=== PATIENT | female | born 2000 | race Caucasian/White ===

== ENCOUNTER 2020-08-24 18:30 | Emergency (ER) | payer MEDICARE ==
[~2020-08-24] VITALS: Ht 162.6 cm; Wt 99.8 kg
--- NOTE | 2020-08-24 18:41 | Emergency Department Note ---
History of Present Illnes History of Present Illness Chief Complaint: COVID PUI History of Present Illness This is a 19 year old female with week long history of cough and body aches .Denies fevers, sorethroat or loss of sense of taste or smell . recently seen by OSH with Neg COVID-19 test Historian: Patient, Family Member Arrival Mode: Car Onset (how long ago): week(s) (1) Radiation: Reports non-radiation Severity: mild Onset quality: gradual Duration (how long): week(s) (1) Timing of current episode: constant Progression: unchanged Chronicity: new Context: Denies recent illness, Denies recent surgery, Denies recent immobilization, Denies recent travel, Denies trauma/injury, Denies new medications, Denies hx of DVT/PE, Denies non-compliance w/ medications, Denies other Relieving factors: none Exacerbating factors: none Associated symptoms: Reports cough; Denies fever/chills Treatments prior to arrival: none Previous service: tests performed Past Medical/Family History Physician Review I have reviewed the patient's past medical and family history. Any updates have been documented here. Past Medical History Recent Fever: Yes Clinical Suspicion of Infectio: Yes New/Unexplained Change in Ment: No Past Medical History: None Past Surgical History: None Social History Smoking Cessation: Never Smoker Alcohol Use: None Any Illegal Drug Use: No Review of Systems Review of Systems Constitutional: Reports no symptoms EENTM: Reports no symptoms Cardiovascular: Reports no symptoms Respiratory: Reports cough Gastrointestinal: Reports no symptoms Genitourinary: Reports no symptoms Musculoskeletal: Reports no symptoms Integumentary: Reports no symptoms Neurological: Reports no symptoms Psychological: Reports no symptoms Endocrine: Reports no symptoms Hematological/Lymphatic: Reports no symptoms Physical Exam Related Data Allergies: Coded Allergies: No Known Allergies (Unverified , 08/24/20) Vital signs reviewed: Yes Physical Exam CONSTITUTIONAL Constitutional: Present well-developed, Present well-nourished, Present morbidly obese HENT HENT: Present normocephalic, Present atraumatic, Present oropharynx clear/moist, Present nose normal HENT L/R: Present left ext ear normal, Present right ext ear normal EYES Eyes: Reports PERRL, Reports conjunctivae normal NECK Neck: Present ROM normal PULMONARY Pulmonary: Present effort normal, Present breath sounds normal CARDIOVASCULAR Cardiovascular: Present regular rhythm, Present heart sounds normal, Present capillary refill normal, Present normal rate GASTROINTESTINAL Abdominal: Present soft, Present nontender, Present bowel sounds normal GENITOURINARY Genitourinary: Present exam deferred SKIN Skin: Present warm, Present dry MUSCULOSKELETAL Musculoskeletal: Present ROM normal NEUROLOGICAL Neurological: Present alert, Present oriented x 3, Present no gross motor or sensory deficits PSYCHOLOGICAL Psychological: Present mood/affect normal, Present judgement normal Results Imaging Imaging results reviewed: Yes Impressions [place] [id number] Patient Name: BEKA GRIFFIN MR #: [id number] : 2000 Age/Sex: 19/F Req #: [id number] Adm Physician: Ordered by: MIMA SMITH DO Report #: [id number] Location: ER Room/Bed: Procedure: [id number] DX/CHEST 2 VIEWS Exam Date: 08/24/20 Exam Time: 1854 REPORT STATUS: Signed EXAMINATION: CHEST 2 VIEWS INDICATION: Cough. ^[id number] ^1855 COMPARISON: None FINDINGS: TUBES and LINES: None. LUNGS: Normal lung volumes. Lungs are clear. No consolidations. There is bibasilar atelectasis. PLEURA: No pleural effusion or pneumothorax. HEART AND MEDIASTINUM: The cardiomediastinal silhouette is unremarkable. BONES AND SOFT TISSUES: No acute osseous lesion. Soft tissues are unremarkable. UPPER ABDOMEN: No free air under the diaphragm. IMPRESSION: No acute thoracic radiographic abnormality. Signed by: Radha Laura MD on 08/24/2020 7:11 PM Dictated By: RADHA LAURA MD 10 Transcribed By: PATRICIA on 08/24/201910 COPY TO: MIMA SMITH DO~ Procedures 12 Lead ECG Interpretation ECG Interpretation : ECG: ECG 1 [employer]: Interpreted by ED physician Date: Aug 24, 2020 Time: 18:44 Prior ECG tracings: reviewed Rhythm: sinus rhythm Rate: normal BPM: 85 QRS axis: normal ST segments normal: Yes T waves normal: Yes Clinical Impression: normal ECG Assessment & Plan Medical Decision Making MDM Diff Dx : COVID-19 URI , PNA Assessment & Plan Final Impression: (1) Bronchitis Depart Disposition: HOME, SELF-CARE MIMA SMITH DO Aug 24, 2020 18:41
--- OUTSIDE RECORDS SUMMARY | 2020-08-24 18:50 | XMS REPORT | Continuity of Care Document ---
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 romeo [facility] ESTIMATED GFR 2019-10-15 17:32:00 Jean Marie Kathleen [facility] URINE CULTURE 2019-10-15 16:08:00 Jean Marie Kathleen [facility] GRAM STAIN 2019-10-15 16:08:00 Jean Marie Kathleen [facility] URINALYSIS SCREEN AND MICROSCOPY, WITH REFLEX TO CULTURE 202 15:56:00 Jean Marie Kathleen HCG QUALITATIVE, URINE SCREEN 2019-10-15 15:56:00 FrannieJean Marie romeo GFR CALCULATION 2019-10-15 15:54:11 Jean Marie Kathleen [facility] Diagnostic evaluation (no medical) - [id number] 2018-06-22 15:04:26 Brittanie Cohen [facility] Ear Irrigation 2016-04-01 15:31:00 Citlaly Vo [facility] Urinalysis - Dip only - In House 2014-11-20 17:52:13 DemetrioShwetha is [facility] Plan of Care Planned Activity Planned Date Details Comments Source Future Scheduled Test 2020-05-04 00:00:00 INFLUENZA VACCINE [code = INFLUENZA VACCINE] [place] [facility] Future Scheduled Test 2016 00:00:00 CHLAMYDIA SCREENIN G [code = CHLAMYDIA SCREENING] [place] [facility] Encounters Start Date/Time End Date/Time En[facility] Encounter ID Source 2020-08-12 00:00:00 2020-08-13 00:00:00 Emergency KATARINA LEVY [place] [id number] [place] [facility] 2020-08-10 00:00:00 2020-08-10 00:00:00 Emergency JONATHAN TODD [facility] [id number] [place] [facility] 2020-04-21 00:00:00 2020-04-22 00:00:00 Emergency GRETA LEIWS [place] [address] [id number] [place] [facility] 2020-04-18 00:00:00 2020-04-19 00:00:00 Emergency LEONA RITTER [place] [address] [id number] [place] [facility] 2020-01-28 00:00:00 2020-01-28 00:00:00 Emergency JUAN ISBELL [place] [address] [id number] [place] [facility] 2020-01-27 00:00:00 2020-01-27 00:00:00 Emergency ARNULFO LOYD [place] [address] [id number] [place] [facility] 2019-11-20 00:00:00 2019-11-20 00:00:00 Office Visit Panda Scruggs [facility] Encounter/[id number] [facility] 2019-11-20 00:00:00 2019-11-20 00:00:00 Office Visit Panda Scruggs [facility] Encounter/[id number] [facility] 2019-11-20 00:00:00 2019-11-20 00:00:00 Office Visit Panda Scruggs [facility] Encounter/[id number] [facility] 2019-11-20 00:00:00 2019-11-20 00:00:00 Office Visit Panda Scruggs [facility] Encounter/[id number] [facility] 2019-11-20 00:00:00 2019-11-20 00:00:00 Office Visit Panda Hill Sonya [facility] Encounter/[id number] [facility] 2019-10-19 00:00:00 2019-10-19 00:00:00 Office Visit Liudmila Shaikh [facility] Encounter/[id number] [facility] 2019-10-19 00:00:00 2019-10-19 00:00:00 Office Visit Panda Scruggs [facility] Encounter/[id number] [facility] 2019-10-19 00:00:00 2019-10-19 00:00:00 Office Visit Panda Scruggs [facility] Encounter/[id number] [facility] 2019-10-19 00:00:00 2019-10-19 00:00:00 Office Visit Panda Hill Sonya [facility] Encounter/[id number] [facility] 2019-10-18 00:00:00 2019-10-18 00:00:00 Emergency ARNULFO LOYD [facility] [id number] [facility] 2019-10-18 00:00:00 2019-10-18 00:00:00 Office Visit Panda Scruggs [facility] Encounter/[id number] [facility] 2019-10-15 00:00:00 2019-10-15 00:00:00 Emergency ÁNGEL CEBALLOS [facility] [id number] [facility] 2019-09-18 00:00:00 2019-09-18 00:00:00 Emergency KATARINA LEVY [facility] [id number] [place] [facility] 2019-06-29 00:00:00 2019-06-29 00:00:00 Office Visit Jacinto Lopez [facility] Encounter/[id number] [facility] 2019-04-11 00:00:00 2019-04-11 00:00:00 Office Visit Brigid Duncan [facility] Encounter/[id number] [facility] 2018-08-02 00:00:00 2018-08-02 00:00:00 Office Visit Matilde Dowling [facility] Encounter/[id number] [facility] 2018-07-29 00:00:00 2018-07-29 00:00:00 [facility]/[id number] [facility] 2018-07-05 00:00:00 2018-07-05 00:00:00 [facility] [employer] [employer] Encounter/[id number] [facility] 2018-06-21 00:00:00 2018-06-21 00:00:00 Office Visit Brittanie Murguia [facility] Encounter/[id number] [facility] 2018-06-21 00:00:00 2018-06-21 00:00:00 Office Visit Anup Moreno [facility] Encounter/[id number] [facility] 2018-05-31 00:00:00 2018-05-31 00:00:00 Office Visit Mei Bowers [facility] Encounter/[id number] [facility] 2018-05-19 00:00:00 2018-05-19 00:00:00 Office Visit Jacinto Lopez [facility] Encounter/[id number] [facility] 2018-05-09 00:00:00 2018-05-09 00:00:00 Office Visit Mei Bowers [facility] Encounter/[id number] [facility] 2018-04-20 00:00:00 2018-04-20 00:00:00 Office Visit Jacinto Lopez [facility] Encounter/[id number] [facility] 2017-11-25 00:00:00 2017-11-25 00:00:00 Office Visit BowersMei patel [facility] Encounter/[id number] [facility] 2017-11-19 00:00:00 2017-11-19 00:00:00 Office Visit Jacinto Lopez [facility] Encounter/[id number] [facility] 2017-05-17 00:00:00 2017-05-17 00:00:00 [facility] En[facility]/[id number] [facility] 2017-04-28 00:00:00 2017-04-28 00:00:00 Office Visit Ines Encarnacion [facility] Encounter/[id number] [facility] 2017-04-22 00:00:00 2017-04-22 00:00:00 Office Visit Jacinto Lopez [facility] Encounter/[id number] [facility] 2017-04-22 00:00:00 2017-04-22 00:00:00 Office Visit Glory Knox Heidy Jahns, [facility] Encounter/[id number] [facility] 2016-06-17 00:00:00 2016-06-17 00:00:00 Office Visit Jacinto Lopez [facility] Encounter/[id number] [facility] 2016-06-17 00:00:00 2016-06-17 00:00:00 Office Visit Glory Knox Kizzy [facility] Encounter/[id number] [facility] 2016-05-20 00:00:00 2016-05-20 00:00:00 Office Visit Jacinto Lopez [facility] Encounter/[id number] [facility] 2016-05-20 00:00:00 2016-05-20 00:00:00 Office Visit Glory Knox Kiera Franklin, Peggy Alaniz, Heidy [facility] Encounter/[id number] [facility] 2016-04-20 00:00:00 2016-04-20 00:00:00 Office Visit Citlaly Vo [facility] Encounter/[id number] [facility] 2016-04-02 00:00:00 2016-04-02 00:00:00 Office Visit Status, Fax [facility] Encounter/[id number] [facility] 2016-04-02 00:00:00 2016-04-02 00:00:00 Office Visit Status, Fax [facility] Encounter/[id number] [facility] 2016-04-02 00:00:00 2016-04-02 00:00:00 Office Visit Status, Fax [facility] Encounter/[id number] [facility] 2016-04-01 00:00:00 2016-04-01 00:00:00 Office Visit Citlaly Vo [facility] Encounter/[id number] [facility] 2016-04-01 00:00:00 2016-04-01 00:00:00 Office Visit Citlaly Mack Kiera Gutierrez, Jessica [place], Peggy [facility] Encounter/[id number] [facility] 2015-05-20 00:00:00 2015-05-20 00:00:00 Office Visit Jacinto Schroeder [facility] Encounter/[id number] [facility] 2015-05-20 00:00:00 2015-05-20 00:00:00 Office Visit Jacinto Schroeder [facility] Encounter/[id number] [facility] 2015-04-11 00:00:00 2015-04-11 00:00:00 Office Visit Becki Reyes [facility] Encounter/[id number] [facility] 2015-04-11 00:00:00 2015-04-11 00:00:00 Office Visit Becki Reyes [facility] Encounter/[id number] [facility] 2015-04-11 00:00:00 2015-04-11 00:00:00 Office Visit Becki Reyes [facility] Encounter/[id number] [facility] 2015-04-11 00:00:00 2015-04-11 00:00:00 Office Visit Marjorie Albarran, Casandra Schroeder, Jamia Chinchilla [facility] Encounter/[id number] [facility] 2014-11-20 00:00:00 2014-11-20 00:00:00 Office Visit Matt Jain, Pauline Reyes [facility] Encounter/[id number] [facility] 2014-08-08 00:00:00 2014-08-08 00:00:00 Office Visit Alon Jay [facility] Encounter/[id number] [facility] 2014-08-08 00:00:00 2014-08-08 00:00:00 Office Visit Alon Jay [facility] Encounter/[id number] [facility] 2014-08-08 00:00:00 2014-08-08 00:00:00 Office Visit Alon Jay [facility] Encounter/[id number] [facility] 2014-08-08 00:00:00 2014-08-08 00:00:00 Office Visit Alon Jay [facility] Encounter/[id number] [facility] 2014-08-08 00:00:00 2014-08-08 00:00:00 Office Visit Alon Ya Guadalupe [facility] Encounter/[id number] [facility] 2014-07-20 00:00:00 2014-07-20 00:00:00 Office Visit Alon Jay [facility] Encounter/[id number] [facility] 2014-07-19 00:00:00 2014-07-19 00:00:00 Office Visit Alon Jay [facility] Encounter/[id number] [facility] 2014-07-19 00:00:00 2014-07-19 00:00:00 Office Visit Status, Fax [facility] Encounter/[id number] [facility] 2014-07-19 00:00:00 2014-07-19 00:00:00 Office Visit Status, [place] [facility] Encounter/[id number] [facility] 2014-07-18 00:00:00 2014-07-18 00:00:00 Office Visit Alon Jay [facility] Encounter/[id number] [facility] 2014-07-18 00:00:00 2014-07-18 00:00:00 Office Visit Alon Jay [facility] Encounter/[id number] [facility] 2014-07-18 00:00:00 2014-07-18 00:00:00 Office Visit Alon Jay [facility] Encounter/[id number] [facility] 2014-07-18 00:00:00 2014-07-18 00:00:00 Office Visit Alon Ya Jacqueline [facility] Encounter/[id number] [facility] 2014-07-09 00:00:00 2014-07-09 00:00:00 Office Visit Jacinto Schroeder [facility] Encounter/[id number] [facility] 2014-07-09 00:00:00 2014-07-09 00:00:00 Office Visit Jacinto Schroeder [facility] Encounter/[id number] [facility] 2014-05-09 00:00:00 2014-05-09 00:00:00 Office Visit Chiqui Peacock, Nay Garcia, Chris Schroeder, Chelsey [facility] Encounter/[id number] [facility] 2014-01-02 00:00:00 2014-01-02 00:00:00 [facility] En[facility]/[id number] [facility] 2014-01-02 00:00:00 2014-01-02 00:00:00 Office Visit [facility]ie [facility]barran [facility]/[id number] [facility] 2013-09-19 00:00:00 2013-09-19 00:00:00 Office Visit Becki Reyes [facility] Encounter/[id number] [facility] 2013-09-19 00:00:00 2013-09-19 00:00:00 Office Visit Candida [facility] Encounter/[id number] [facility] 2013-09-19 00:00:00 2013-09-19 00:00:00 Office Visit Marjorie Albarran [facility] Encounter/[id number] [facility] 2013-08-22 00:00:00 2013-08-22 00:00:00 [facility] Visit [facility] Encounter/[id number] [facility] 2013-08-22 00:00:00 2013-08-22 00:00:00 Office Visit Marjorie Albarran Cristina [facility] Encounter/[id number] [facility] 2013-08-17 00:00:00 2013-08-17 00:00:00 Office Visit Becki Reyes [facility] Encounter/[id number] [facility] 2013-03-06 00:00:00 2013-03-06 00:00:00 Office Visit Preload , [place] [facility] Encounter/[id number] [facility] 2013-03-06 00:00:00 2013-03-06 00:00:00 Office Visit Preload , [place] [facility] Encounter/[id number] [facility] 2013-03-06 00:00:00 2013-03-06 00:00:00 Office Visit Preload , [place] [facility] Encounter/[id number] [facility] 2013-03-06 00:00:00 2013-03-06 00:00:00 Office Visit Preload , [place] [facility] Encounter/[id number] [facility] 2011-11-09 00:00:00 2011-11-09 00:00:00 Office Visit Preload , [place] [facility] Encounter/[id number] [facility] 2011-11-09 00:00:00 2011-11-09 00:00:00 Office Visit Preload , [place] [facility] Encounter/[id number] [facility] 2011-11-09 00:00:00 2011-11-09 00:00:00 Office Visit Preload , [place] [facility] Encounter/[id number] [facility] 2011-11-09 00:00:00 2011-11-09 00:00:00 Office Visit Preload , [place] [facility] Encounter/[id number] [facility] 2011-11-09 00:00:00 2011-11-09 00:00:00 Office Visit Preload , [place] [facility] Encounter/[id number] [facility] 2010-08-21 00:00:00 2010-08-21 00:00:00 Office Visit Preload , [place] [facility] Encounter/[id number] [facility] Results Test Description Test Time Test Comments Results Result Comments Source ECG 12 lead 2020-08-13 15:09:18 Test Item Ventricular rate (test code = 253) 86 Atrial rate (test code = 255) 86 ND interval (test code = 266) 156 QRSD interval (test code = 260) 76 QT interval (test code = 264) 362 QTC interval (test code = 265) 433 P axis 1 (test code = 267) 44 QRS axis 1 (test code = 268) 59 T wave axis (test code = 270) 28 EKG impression (test code = 273) Normal sinus rhythm-N ormal ECG-In automated comparison with ECG of 29-JUN-2019 05:13,-No significant change was found- [place] MethodistRespiratory pathogen [id number] 11:15:05* Test Item Value Reference Range Interpretation Comments Adenovirus PCR (test code = 7092) Not Detected Specimen InformationSpecimen Source: NasopharyngealSpecimen Site: Swab Coronavirus HKU1 PCR (test code = 7093) Not Detected Coronavirus NL63 PCR (test code = 7094) Not Detected Coronavirus 229E PCR (test code = 7095) Not Detected Coronavirus OC43 PCR (test code = 7096) Not Detected Human metapneumovirus PCR (test code = 7097) Not Detected Human rhinovirus/enterovirus PCR (test code = 7098) Detected A Influenza A PCR (test code = 7099) Not Detected Influenza A/H1 PCR (test code = 7100) Not Reported Influenza A/H3 PCR (test code = 7102) Not Reported Influenza A/H1-2009 PCR (test code = 7101) Not Reported Influenza B PCR (test code = 7104) Not Detected Parainfluenza virus 1 PCR (test code = 7105) Not Detected Parainfluenza virus 2 PCR (test code = 7106) Not Detected Parainfluenza virus 3 PCR (test code = 7107) Not Detected Parainfluenza virus 4 PCR (test code = 7108) Not Detected Respiratory syncytial virus PCR (test code = 7109) Not Detected Bordetella pertussis PCR (test code = 3573300) Not Detected Bordetella parapertussis PCR (test code = 7778499) Not Detected Chlamydia pneumoniae PCR (test code = 3753) Not Detected Mycoplasma pneumoniae PCR (test code = 7110) Not Detected COVID-19 qualitative PCR result (test code = 37100-5) Not Detected Lab Interpretation (test code = 26107-9) Abnormal [place] MethodistInfluenza antigen test, reflex negative to [id number] 11:12:42* Test Item Value Reference Range Interpretation Comments Influenza antigen (test code = 14847-5) Negative for Influenza A/B antigen. Specimen InformationSpecimen Source: NasopharyngealSpecimen Site: Swab COVID-19 qualitative PCR result (test code = 32795-4) Not Detected [place] MethodistUrine zgjwhbg9071-72-01 13:11:07* Test Item Value Reference Range Interpretation Comments Urine culture isolate (test code = 14544-4) Mixed ya 10-5 col/cc Specimen InformationSpecimen Source: UrineSpecimen Site: Clean catch [place] MethodistComprehensive metabolic [id number] 22:23:40* Test Item Value Reference Range Interpretation Comments Sodium (test code = 2951-2) 137 135- 150 mEq/L Potassium (test code = 2823-3) 4.2 3.5- 5.0 mEq/L Chloride (test code = 2075-0) 102 98- 112 mEq/L CO2 (test code = 2027-9) 25 mmol/L 24-31 Anion gap (test code = 43098-7) 10@ANIO 7- 15 mEq/L BUN (test code = 3094-0) 10 mg/dL 7-18 Creatinine (test code = 2160-0) 0.70 mg/dL 0.5-0.9 Glucose (test code = 2345-7) 85 mg/dL 65-100 Calcium (test code = 30708-1) 9.4 mg/dL 8.3-10.2 Protein (test code = 2885-2) 7.3 g/dL 6.3-8.3 Albumin (test code = 1751-7) 3.7 g/dL 3.5-5 A/G ratio (test code = 1759-0) 1.0 0.7-3.8 Alkaline phosphatase (test code = 6768-6) 111 U/L 0-104 H AST (test code = 1920-8) 14 U/L 10-35 ALT (test code = 1742-6) 12 U/L 5-50 Total bilirubin (test code = 1974-) <0.3 0.2-1.2 Lab Interpretation (test code = 79664-1) Abnormal [place] MethodistLipase [id number] 22:23:39* Test Item Value Reference Range Interpretation Comments Lipase (test code = 3040-3) 28 U/L 13-60 [place] MethodistEstimated [id number] 22:23:38* Test Item Value Reference Range Interpretation Comments Estimated GFR (test code = 5488) >=90 mL/min/1.73 m2 Catergory Units InterpretationG1 >=90 Normal or highG2 60-89 Mildly wblsruxvbI1w 45-59 Mildly to moderately qfjglyphuK0z 30-44 Moderately to severely decreasedG4 15-29 Severely decreasedG5 <15 Kidney failureThe eGFR was calculated using the Chronic Kidney Disease Epidemiology Collaboration (CKD-EPI) equation. Interpretation is based on recommendations of the National Kidney Foundation-Kidney Disease Outcomes Quality Initiative (NKF-KDOQI) published in 2014. [place] MethodistCBC with platelet and icmxmoexexvu1753-56-11 22:05:05* Test Item Value Reference Range Interpretation Comments WBC (test code = 66480-6) 15.2 4.5- 12.5 k/uL H RBC (test code = 17933-2) 4.38 m/uL 4.04-5.86 HGB (test code = 718-7) 12.3 g/dL 11.5-15.3 HCT (test code = 4544-3) 37.3 % 34-45 MCV (test code = 787-2) 85.2 fL 80-98 MCH (test code = 785-6) 28.1 pg 27-34 MCHC (test code = 786-4) 33.0 g/dL 31.5-36.5 RDW - SD (test code = 27585-7) 39.8 fL 37-51 MPV (test code = 14319-9) 9.0 fL 7.4-10.4 Platelet count (test code = 00108-2) 636 150- 400 k/uL H Nucleated RBC (test code = 53242-0) 0.00 /100 WBC Neutrophils (test code = 19366-8) 62.9 % 36-66 Lymphocytes (test code = 84126-0) 26.3 % 24-44 Monocytes (test code = 65528-4) 6.0 % 0-6 Eosinophils (test code = 28162-8) 3.7 % 0-6 Basophils (test code = 55863-6) 0.7 % 0-1.2 Immature granulocytes (test code = 95905-4) 0.4 % 0-1 Lab Interpretation (test code = 23264-7) Abnormal [place] MethodistUrinalysis screen and microscopy, with reflex to culture 2020-08-10 21:43:41* Test Item Value Reference Range Interpretation Comments Specimen site (test code = 0573462) Clean catch Color, UA (test code = 5778-6) Yellow Appearance, UA (test code = 5767-9) Clear Specific gravity, UA (test code = 5811-5) 1.024 1.001-1.035 pH, UA (test code = 5803-2) 7.0 5.0-8.5 Protein, UA (test code = 71114-0) Negative Negative Glucose, UA (test code = 78119-2) Negative Negative Ketones, UA (test code = 2514-8) Negative Negative Bilirubin, UA (test code = 5770-3) Negative Negative Blood, UA (test code = 5794-3) Negative Negative Nitrite, UA (test code = 5802-4) Negative Negative Urobilinogen, UA (test code = 58727-4) 2.0 <2.0 A Leukocyte esterase, UA (test code = 5799-2) Trace Negative A Epithelial cells, UA (test code = 5787-7) Many /HPF WBC, UA (test code = 5821-4) 3 0- 5 /HPF RBC, UA (test code = 87064-5) 1 0- 5 /HPF Bacteria, UA (test code = 85785-3) None seen None seen Yeast, UA (test code = 71787-6) None seen Yeast with pseudohyphae, UA (test code = 93406-9) None seen Amorphous crystals (test code = 80275-6) Few Lab Interpretation (test code = 27722-3) Abnormal [place] MethodisthCG qualitative, urine vhzqpu2403-83-86 21:34:09* Test Item Value Reference Range Interpretation Comments hCG qualitative, urine (test code = 2106-3) Negative Negative The manufacturers stated sensitivity of HcG test for serum is >/= 10 mIU/ml and urine is >/= 20mIU/ml. [place] MethodistXR Chest 2 [id number] 21:13:30Hm Interface, Radiology Results 08/10/2020 9:16 PM CSTEXAMINATION: XR CHEST 2 VWCLINICAL HISTORY: chest painCOMPARISON: 04/21/2020IMPRESSION:No radiographic evidence for acute cardiopulmonary process.Cardiomediastinal silhouette is within normal limits of size.No focal or confluent airspace consolidation is seen to suggest acute pneumonia. No sizable pleural effusion. No pneumothorax identified.No acute osseous abnormalities are visualized.[id number]EC ED Preliminary Interpretation - Not an [id number] 21:05:43MicJonathan reyes MD 08/11/2020 9:53 PME ED Preliminary Interpretation - Not an OrderPerformed by: Jonathan Todd MDAuthorized by: Jonathan Todd MD ECG reviewed by ED Physician in the absence of a jet handler: yes Interpretation: Interpretation: normal Rate: ECG rate: 86 ECG rate assessment: normal Rhythm: Rhythm: sinus rhythm Ectopy: Ectopy: none QRS: QRS axis: Normal QRS intervals: NormalConduction: Conduction: normal ST segments: ST segments: NormalT waves: T waves: normal [place] MethodistXR Chest 1 Vw [id number] 22:34:08Hm Interface, Radiology Results - 04/21/2020 10:37 PM CDTExamination: XR CHEST 1 VW PORTABLEClinical History: SOBComparison: None.Technique: Single frontal view of the chest is obtained.Findings:The lungs are free of infiltrate.The heart size is normal.No pleural effusion is seen.Impression:No active cardiopulmonary disease identified.[facility]-[id number] MethodistChlamydia gonorrhoeae and trichomonas cehxs7011-90-79 20:53:39* Test Item Value Reference Range Interpretation Comments Chlamydia trachomatis by PCR (test code = 50342-6) Neg ative for Chlamydia trachomatis. Specimen Information Specimen Source: UrineSpecimen Site: Midstream Neisseria gonorrhoeae by PCR (test code = 92802-1) Neg ative for Neisseria gonorrhoeae. Trichomonas vaginalis by PCR (test code = 82467-6) Neg ative for Trichomonas vaginalis. [place] MethodistWet jcko3505-35-13 02:32:21Wet prep resultOccasional WBC'sFew epithelial cellsFew bacteriaOccasional yeast with pseudohyphaeNo Trichomonas vaginalis seenNo Clue cells seen Comment: Specimen InformationSpecimen Source: VaginalSpecimen Site: Not otherwise specified [facility] bsqpdph3776-34-56 01:15:21* Test Item Value Reference Range Interpretation Comments POC glucose (test code = 56538-7) 104 mg/dL 65-100 H Steerer Name: Rosetta Martin ID: [id number] Lab Interpretation (test code = 54695-7) Abnormal [facility], serum [id number] 15:13:40* Test Item Value Reference Range Interpretation Comments hCG qualitative, serum (test code = 2118-8) Negative The manufacturers stated sensitivity of HcG test for serum is >/= 10 mIU/ml and urine is >/= 20mIU/ml. [facility] Head Wo Gkpkuvsh9845-13-98 19:34:19Hm Interface, Radiology Results 01/27/2020 7:37 PM CDTEXAM: CT HEAD WO CONTRASTCLINICAL HISTORY: mvc headacheTECHNIQUE: Noncontrast enhanced images of the brain were obtained from the skull base to the vertex. Both soft tissue and bone reconstruction algorithms were performed. CT scans are performed using radiation dose reduction techniques (iterative reconstruction and/or automated exposure control). Technical factors are evaluated and adjusted to ensure approp riate moderation of exposure. Automated dose management technology is applied to adjust radiation exposure while achieving a diagnostic quality image.COMPARISON: None.FINDINGS:The stringer-white matter differentiation is preserved and without evidence of acute territorial infarction. 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 Paranasal sinuses are clear. Mastoid air cells are normall y pneumatized. Osseous structures are intact.IMPRESSION:No CT evidence for acut e intracranial abnormality.[facility]-[id number] MethodistGram zuvbt0622-31-45 18:43:11* Test Item Value Reference Range Interpretation Comments Gram stain result (test code = 664-3) No WBC's or organisms seen. Specimen InformationSpecimen Source: UrineSpecimen Site: Clean catch [place] Methodistinfluenza B virus smxvqdy1271-97-48 11:07:33* Test Item Value Reference Range Interpretation Comments influenza B virus antigen (test code = 38100) negative [facility]in[facility] A fosbabv0929-06-37 11:07:33* Test Item Value Reference Range Interpretation Comments influenza virus A antigen (test code = 3413) negative [facility] Hospitalglucose, urine, ykhqxrzikxtxzkuj7188-46-43 11:07:33* Test Item Value Reference Range Interpretation Comments glucose, urine, semiquantitative (test code = 123) negative [facility] Hospitalbilirubin, dawty0965-04-52 11:07:33* Test Item Value Reference Range Interpretation Comments bilirubin, urine (test code = 319) negative [facility] Hospitalketones, urine, by test dfbgf4269-17-85 11:07:33* Test Item Value Reference Range Interpretation Comments ketones, urine, by test strip (test code = 322) negative [facility] Hospitalspecific gravity, jqism0818-43-89 11:07:33* Test Item Value Reference Range Interpretation Comments specific gravity, urine (test code = 325) 1.025 [facility] Hospitalblood in urine (hemoglobin) by iytubsfb6151-50-26 11:07:33* Test Item Value Reference Range Interpretation Comments blood in urine (hemoglobin) by dipstick (test code = 4998) negative [facility] HospitalpH, urine, bzofxyzpdcithruf4449-09-04 11:07:33* Test Item Value Reference Range Interpretation Comments pH, urine, semiquantitative (test code = 324) 5.0 [facility] Hospitalprotein, urine, semiquantitative (dipstick)2019-10-19 11:07:33* Test Item Value Reference Range Interpretation Comments protein, urine, semiquantitative (dipstick) (test code = 1753-3) ne gative [facility] Healthurobilinogen, urine, semiquantitative (dipstick) 2019-10-19 11:07:33* Test Item Value Reference Range Interpretation Comments urobilinogen, urine, semiquantitative (dipstick) (test code = 326) 1 [facility] Hospitalnitrite, urine, rdfasvlxnmgwvtgu9667-39-78 11:07:33* Test Item Value Reference Range Interpretation Comments nitrite, urine, semiquantitative (test code = 323) negative [facility] Hospitalleukocyte esterase, urine, by kjlzxpmp9584-31-72 11:07:33 * Test Item Value Reference Range Interpretation Comments leukocyte esterase, urine, by dipstick (test code = 327) 1+ [facility] Hospitalappearance, [id number] 11:07:33* Test Item Value Reference Range Interpretation Comments appearance, urine (test code = 328) clear LegUNC Healthurine ehlsb2389-86-57 11:07:33* Test Item Value Reference Range Interpretation Comments urine color (test code = 2751) light yellow [facility] Hospitalbeta HCG, urine, vximsdxmvhwmvvfw7970-47-81 11:07:33* Test Item Value Reference Range Interpretation Comments beta HCG, urine, semiquantitative (test code = 2106-3) negative [facility] HospitalCreatine kinase, total (CPK)2019-10-18 12:21:54* Test Item Value Reference Range Interpretation Comments Creatine kinase (test code = 2157-6) 95 U/L 26-192 [facility] MethodistGFR wxvmbtoxfpe1123-97-64 10:52:50* Test Item Value Reference Range Interpretation Comments GFR calculation (test code = 1455) See Below GFR not valid on patients less than 18 years of age. [facility] Shahist- XR L-SPINE 2/3 MVGHT2326-12-88 12:39:00 [place]: O St: REG Name: BEKA ZAMBRANO [facility] : 11/15/19 01 Age/S: 18/F [place] Aldo nataliia Unit #: [id number] Loc: HORACE Hernandez [address] Phys: Undefined Provider Acct: [id number] Dis Date: Status: REG CLI PHONE #: [phone] Exam Date: 04/26/2019 1219 FAX #: [phone] Reason: BACK PAIN EXAMS: CPT CODE: [id number] XR L-SPINE 2/3 VIEWS 98950 HISTORY: Back pain. COMPARISON: None available. T-SPINE SERIES, 4 VIEWS: No acute fracture or dislocation. Vertebral body heights are maintained. Disc spaces are preserved. IMPRESSION: No acut e fracture or dislocation. Vertebral body heights are maintained. No par avertebral lesions. L-SPINE SERIES, 3 VIEWS: No acute fracture or dislocation. Vertebral body heights are maintained. Disc spaces are preserved. SI joints are preserved. IMPRESSI ON: No acute fracture or dislocation. Vertebral body heights a re maintained. Straightening of the lumbar lordosis may suggest muscular spasm or this could be positional. at 7375 Reported and si gned by: Kevin Lemus M.D. CC: Technologist: KAMRAN Spence) Trnscrd Date/Time/By: 04/26/2019 (6386) : By: [email or web address] Orig Print D/T: S: 04/26/2019 (5576) PAGE 1 Signed Report - XR T-SPINE 3 [id number] 12:39:00 [place]: O St: REG Name: BEKA ZAMBRANO [facility] : 11/15/19 01 Age/S: 18/F [address] [facility] Unit #: [id number] Loc: [place] [address] Phys: Undefined Provider Acct: [id number] Dis Date: Status: REG CLI PHONE #: [phone] Exam Date: 04/26/2019 1219 FAX #: [phone] Reason: EXAMS: CPT CODE: [id number] XR T-SPINE 3 VIEWS 61454 HISTORY: Back pain. COMPARISON: None available. T-SPINE SERIES, 4 VIEWS: No acute fracture or dislocation. Vertebral body heights are maintained. Disc spaces are preserved. IMPRESSION: No acut e fracture or dislocation. Vertebral body heights are maintained. No par avertebral lesions. L-SPINE SERIES, 3 VIEWS: No acute fracture or dislocation. Vertebral body heights are maintained. Disc spaces are preserved. SI joints are preserved. IMPRESSI ON: No acute fracture or dislocation. Vertebral body heights a re maintained. Straightening of the lumbar lordosis may suggest muscular spasm or this could be positional. at 1239 Reported and si gned by: Kevin Lemus M.D. CC: Technologist: RT Bebe(Alma Delia) Trnscrd Date/Time/By: 04/26/2019 (6099) : By: [email or web address] Orig Print D/T: S: 04/26/2019 (9439) PAGE 1 Signed Report specific gravity, urine 2014-11-20 17:07:39* Test Item Value Reference Range Interpretation Comments specific gravity, urine (test code = 325) 1.015 [facility] HealthpH, urine, whcirxfujyceukod1765-94-14 17:07:39* Test Item Value Reference Range Interpretation Comments pH, urine, semiquantitative (test code = 324) 7.0 [facility] Hospitalglucose, urine, yraztrxofbdnngeo0938-39-60 17:07:39* Test Item Value Reference Range Interpretation Comments glucose, urine, semiquantitative (test code = 123) negative [facility] Healthbilirubin, cpqji9875-89-43 17:07:39* Test Item Value Reference Range Interpretation Comments bilirubin, urine (test code = 319) negative [facility] Hospitalketones, urine, by test [id number] 17:07:39* Test Item Value Reference Range Interpretation Comments ketones, urine, by test strip (test code = 322) negative [facility] Hospitalblood in urine (hemoglobin) by pddgdeqe3008-73-98 17:07:39* Test Item Value Reference Range Interpretation Comments blood in urine (hemoglobin) by dipstick (test code = 4998) n on-hemolyzed trace [facility] Healthprotein, urine, semiquantitative (dipstick)2014-11-20 17:07:39* Test Item Value Reference Range Interpretation Comments protein, urine, semiquantitative (dipstick) (test code = 1753-3) 1+ [facility] Hospitalurobilinogen, urine, semiquantitative (dipstick) 2014-11-20 17:07:39* Test Item Value Reference Range Interpretation Comments urobilinogen, urine, semiquantitative (dipstick) (test code = 326) 0.2 [facility] Hospitalnitrite, urine, gchamtsapzawakzf7611-97-50 17:07:39* Test Item Value Reference Range Interpretation Comments nitrite, urine, semiquantitative (test code = 323) negative [facility] Hospitalleukocyte esterase, urine, by azkuncpo1868-15-25 17:07:39 * Test Item Value Reference Range Interpretation Comments leukocyte esterase, urine, by dipstick (test code = 327) trace [facility] Hospitalappearance, nojzp2159-60-81 17:07:39* Test Item Value Reference Range Interpretation Comments appearance, urine (test code = 328) clear [facility] Hospitalurine bhnxo8134-90-62 17:07:39* Test Item Value Reference Range Interpretation Comments urine color (test code = 2751) yellow [facility] Hospitalthyroid stimulating hormone, ljhhg1093-01-37 10:59:00* Test Item Value Reference Range Interpretation Comments thyroid stimulating hormone, serum (test code = 29) 1.930 u[iU]/ mL 0.450-4.500 [facility] HospitalLDL cholesterol, gxelg2217-99-79 10:59:00* Test Item Value Reference Range Interpretation Comments LDL cholesterol, serum (test code = 2089-1) 98 mg/dL 0-109 [facility] Hospitalver low density usqhktfwoxet4851-16-98 10:59:00* Test Item Value Reference Range Interpretation Comments very low density lipoproteins (test code = 2548) 19 mg/dL 5-40 [facility] HospitalHDL cholesterol, wrmef1260-10-10 10:59:00* Test Item Value Reference Range Interpretation Comments HDL cholesterol, serum (test code = 2085-9) 45 mg/dL >39 [facility] Hospitaltriglyceride, serum, wfjoztg1990-23-52 10:59:00* Test Item Value Reference Range Interpretation Comments triglyceride, serum, fasting (test code = 2571-8) 95 mg/dL 0-89 H [facility] Hospitalcholesterol, msewd5056-95-21 10:59:00* Test Item Value Reference Range Interpretation Comments cholesterol, serum (test code = 2093-3) 162 mg/dL 100-169 [facility] Hospitalbacteria, urine pjeoqhdkkb9892-10-20 10:59:00* Test Item Value Reference Range Interpretation Comments bacteria, urine microscopy (test code = 2406) None seen None see n/Few [facility] Hospitalmucus on epulnctoue7886-35-67 10:59:00* Test Item Value Reference Range Interpretation Comments mucus on urinalysis (test code = 2717) Present [facility] Hospitalepithelial cells, ppgpz5633-12-73 10:59:00* Test Item Value Reference Range Interpretation Comments epithelial cells, urine (test code = 2416) 0-10 0-10 [facility] HospitalRBC, Qdebr8127-01-07 10:59:00* Test Item Value Reference Range Interpretation Comments RBC, Urine (test code = 69431) 0-2 /hpf 0-2 [facility] HospitalWBC urine on qxiqjkkvlc7363-08-36 10:59:00* Test Item Value Reference Range Interpretation Comments WBC urine on microscopy (test code = 1016) 0-5 /hpf 0-5 [facility] Hospitalmicroscopic ryke3606-63-53 10:59:00* Test Item Value Reference Range Interpretation Comments microscopic exam (test code = 96096) See below: [facility] Hospitalurinalysis, microscopic lcwzaobseii0451-10-72 10:59:00* Test Item Value Reference Range Interpretation Comments urinalysis, microscopic examination (test code = 2566) Microscopic follows if indicated. [facility] Hospitalnitrate, qndet3409-61-25 10:59:00* Test Item Value Reference Range Interpretation Comments nitrate, urine (test code = 5135) Negative Negative [facility] Hospitalurobilinogen, urine, semiquantitative (dipstick) 2014-07-18 10:59:00* Test Item Value Reference Range Interpretation Comments urobilinogen, urine, semiquantitative (dipstick) (test code = 32 6) 0.2 0.0-1.9 [facility] Hospitalbilirubin, ssbcg1266-63-50 10:59:00* Test Item Value Reference Range Interpretation Comments bilirubin, urine (test code = 319) Negative Negative [facility] Hospitalketones, urine, by test ffgum0703-83-90 10:59:00* Test Item Value Reference Range Interpretation Comments ketones, urine, by test strip (test code = 322) Negative Negati ve [facility] Hospitalglucose, urine, bhvzubwlotxahxzi2048-58-39 10:59:00* Test Item Value Reference Range Interpretation Comments glucose, urine, semiquantitative (test code = 123) Negative Neg ative [facility] Hospitalprotein, urine, semiquantitative (dipstick)2014-07-18 10:59:00* Test Item Value Reference Range Interpretation Comments protein, urine, semiquantitative (dipstick) (test code = 175 3-3) Negative Negative/Trace [facility] Hospitalleukocyte esterase, urine, by cmfbnqxd8556-90-49 10:59:00 * Test Item Value Reference Range Interpretation Comments leukocyte esterase, urine, by dipstick (test code = 327) Negative Negative [facility] Hospitalappearance, gopmu0703-27-07 10:59:00* Test Item Value Reference Range Interpretation Comments appearance, urine (test code = 328) Clear Clear [facility] Hospitalurine srhaj6017-17-76 10:59:00* Test Item Value Reference Range Interpretation Comments urine color (test code = 2751) Yellow Yellow [facility] HospitalpH, urine, aumrqpdlvfxxodfd9200-13-69 10:59:00* Test Item Value Reference Range Interpretation Comments pH, urine, semiquantitative (test code = 324) 6.0 5.0-7.5 [facility] [facility], body [id number] 10:59:00* Test Item Value Reference Range Interpretation Comments specific gravity, body fluid (test code = 3512) 1.024 1.005- 1.030 [facility]), [id number] 10:59:00 * Test Item Value Reference Range Interpretation Comments alanine aminotransferase (SGPT), serum (test code = 40) 19 1/L 0-24 [facility]as[facility] (SGOT), [id number] 10:59:00* Test Item Value Reference Range Interpretation Comments aspartate aminotransferase (SGOT), serum (test code = 39) 21 1/L 0-40 [facility]alk[facility] phosphatase, [id number] 10:59:00* Test Item Value Reference Range Interpretation Comments alkaline phosphatase, serum (test code = 3) 139 1/L 68-209 [facility], [id number] 10:59:00* Test Item Value Reference Range Interpretation Comments bilirubin, serum, total (test code = 43) 0.2 mg/dL 0.0-1.2 [facility] Healthalbumin/globulin ratio, [id number] 10:59:00* Test Item Value Reference Range Interpretation Comments albumin/globulin ratio, serum (test code = 146) 1.8 1.1-2. 5 [facility] Healthglobulin, [id number] 10:59:00* Test Item Value Reference Range Interpretation Comments globulin, serum (test code = 3059) 2.5 1.5-4.5 [facility] Healthalbumin, [id number] 10:59:00* Test Item Value Reference Range Interpretation Comments albumin, serum (test code = 2) 4.6 g/dL 3.5-5.5 [facility] Healthprotein, total, [id number] 10:59:00* Test Item Value Reference Range Interpretation Comments protein, total, serum (test code = 36) 7.1 g/dL 6.0-8.5 [facility] Healthcalcium, [id number] 10:59:00* Test Item Value Reference Range Interpretation Comments calcium, serum (test code = 11) 10.0 mg/dL 8.9-10.4 [facility]carbon [facility], venous [id number] 10:59:00* Test Item Value Reference Range Interpretation Comments carbon dioxide, venous blood (test code = 15) 24 mmol/L 18-29 [facility] Healthchloride, [id number] 10:59:00* Test Item Value Reference Range Interpretation Comments chloride, serum (test code = 13) 101 mmol/L 97-108 [facility] Healthpotassium, [id number] 10:59:00* Test Item Value Reference Range Interpretation Comments potassium, serum (test code = 35) 4.7 mmol/L 3.5-5.2 [facility]alsodium, [id number] 10:59:00* Test Item Value Reference Range Interpretation Comments sodium, serum (test code = 159) 138 mmol/L 134-144 [facility]urea nitrogen/creatinine ratio, [id number] 10:59:00 * Test Item Value Reference Range Interpretation Comments urea nitrogen/creatinine ratio, serum (test code = 2462) 22 9-25 [facility]creatinine, [id number] 10:59:00* Test Item Value Reference Range Interpretation Comments creatinine, serum (test code = 18) 0.58 mg/dL 0.49-0.90 [facility]urea nitrogen, [id number] 10:59:00* Test Item Value Reference Range Interpretation Comments urea nitrogen, blood (test code = 9) 13 mg/dL 5-18 [facility]blood glucose, [id number] 10:59:00* Test Item Value Reference Range Interpretation Comments blood glucose, random (test code = 8) 84 mg/dL 65-99 [facility] Hospitalimmature granulocytes, percentage of total cells, blood 2014-07-18 10:59:00* Test Item Value Reference Range Interpretation Comments immature granulocytes, percentage of total cells, bloo d (test code = 245402) 0 % [facility]basophil count, [id number] 10:59:00* Test Item Value Reference Range Interpretation Comments basophil count, absolute (test code = 08760) 0.1 x10E3/uL 0.0-0.3 [facility] HospitalEosinophil Absolute [id number] 10:59:00* Test Item Value Reference Range Interpretation Comments Eosinophil Absolute Count (test code = 811103) 0.7 X10E3/UL 0.0-0.4 H [facility]monocyte count, blood, [id number] 10:59:00* Test Item Value Reference Range Interpretation Comments monocyte count, blood, automated (test code = 3076) 0.5 X10E3/UL 0. 1-0.9 [facility]allymphocyte count, blood, [id number] 10:59:00* Test Item Value Reference Range Interpretation Comments lymphocyte count, blood, automated (test code = 3074) 3.5 X10E3/UL 0.7-3.1 H [facility] HospitalAbsolute [id number] 10:59:00* Test Item Value Reference Range Interpretation Comments Absolute Neutrophils (test code = 74722) 5.8 X10E3/UL 1.4-7.0 [facility]basophils as percent of blood [id number] 10:59:00* Test Item Value Reference Range Interpretation Comments basophils as percent of blood leukocytes (test code = 2426) 1 % [facility]aleosinophils as percent of blood [id number] 10:59:00* Test Item Value Reference Range Interpretation Comments eosinophils as percent of blood leukocytes (test code = 4170) 6 % [facility] Healthmonocytes as percent of blood [id number] 10:59:00* Test Item Value Reference Range Interpretation Comments monocytes as percent of blood leukocytes (test code = 2421) 5 % [facility]allymphocytes as percent of blood [id number] 10:59:00* Test Item Value Reference Range Interpretation Comments lymphocytes as percent of blood leukocytes (test code = 317) 33 % [facility] Hospitalneutrophils as percent of blood [id number] 10:59:00* Test Item Value Reference Range Interpretation Comments neutrophils as percent of blood leukocytes (test code = 316) 55 % [facility] Hospitalplatelet [id number] 10:59:00* Test Item Value Reference Range Interpretation Comments platelet count (test code = 66) 610 X10E3/UL 150-379 H [facility] Hospitalred blood cell distribution [id number] 10:59:00* Test Item Value Reference Range Interpretation Comments red blood cell distribution width (test code = 1030) 13.7 % 1 2.3-15.4 [facility] corpuscular hemoglobin concentration, [id number] 10:59:00* Test Item Value Reference Range Interpretation Comments mean corpuscular hemoglobin concentration, RBC (test code = 1029) 33.2 G/DL 31.5-35.7 [facility] corpuscular hemoglobin, [id number] 10:59:00* Test Item Value Reference Range Interpretation Comments mean corpuscular hemoglobin, RBC (test code = 1031) 28.1 pg 26 .6-33.0 [facility] corpuscular volume, [id number] 10:59:00* Test Item Value Reference Range Interpretation Comments mean corpuscular volume, RBC (test code = 315) 85 fL 79-97 [facility]hematocrit, [id number] 10:59:00* Test Item Value Reference Range Interpretation Comments hematocrit, blood (test code = 64) 40.1 % 34.0-46.6 [facility] Hospitalhemoglobin, [id number] 10:59:00* Test Item Value Reference Range Interpretation Comments hemoglobin, blood (test code = 65) 13.3 g/dL 11.1-15.9 [facility] Hospitalerythrocyte (RBC) [id number] 10:59:00* Test Item Value Reference Range Interpretation Comments erythrocyte (RBC) count (test code = 67) 4.73 X10E6/UL 3.77-5.28 [facility] Hospitalleukocyte count, [id number] 10:59:00* Test Item Value Reference Range Interpretation Comments leukocyte count, blood (test code = 68) 10.6 X10E3/UL 3.4-10.8 [facility]
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
--- NOTE | 2020-08-24 19:14 | Diagnostic Imaging Report ---
EXAMINATION: CHEST 2 VIEWS INDICATION: Cough. ^[id number] ^[id number] COMPARISON: None FINDINGS: TUBES and LINES: None. LUNGS: Normal lung volumes. Lungs are clear. No consolidations. There is bibasilar atelectasis. PLEURA: No pleural effusion or pneumothorax. HEART AND MEDIASTINUM: The cardiomediastinal silhouette is unremarkable. BONES AND SOFT TISSUES: No acute osseous lesion. Soft tissues are unremarkable. UPPER ABDOMEN: No free air under the diaphragm. IMPRESSION: No acute thoracic radiographic abnormality. Signed by: Robinson Ramos MD on 08/24/2020 7:11 PM
== END 2020-08-24 19:42 | disposition home or self-care (01) ==
LOC: ER 18:47
DX: J40 Bronchitis, not specified as acute or chronic (principal); R05 Cough
CPT/HCPCS: 71046; 93005; 99283